=== PATIENT | female | born 1930 | race Caucasian/White ===

== ENCOUNTER 2017-11-10 14:27 | Outpatient (CLI) | payer MEDICARE ==
--- NOTE | 2017-11-11 22:01 | Mammography Report ---
DATE OF SERVICE: 11/10/2017 DIGITAL SCREENING MAMMOGRAM: 11/10/2017 CLINICAL INDICATION: An 86-year-old with a family history of breast cancer for screening. COMPARISON: 10/2016, , 10/2014, 10/2011. TECHNIQUE: Routine CC and MLO projections were obtained of the breasts. The breasts demonstrate scattered fibroglandular densities bilaterally. intramammary lymph nodes are stable. Coarse and punctate, typically benign calcifications are present. No suspicious masses, clustered microcalcifications, or regions of architectural distortion are identified. IMPRESSION: Benign findings. RECOMMENDATIONS: Routine annual screening unless otherwise clinically indicated. BIRADS category 2 benign findings. STANDARD QUALIFYING STATEMENTS 1. This examination was reviewed with the aid of Computed-Aided Detection (CAD). 2. A negative or benign imaging report should not delay biopsy if clinically suspicious findings are present. Consider surgical consultation if warranted. More than 5% of cancers are not identified by imaging. 3. Dense breasts may obscure an underlying neoplasm. TD: 11/11/2017 22:58
== END 2017-11-10 14:28 | disposition home or self-care (01) ==
LOC: DI.N 14:27
PROVIDERS: ATTEND Family Medicine
DX: Z12.31 Encounter for screening mammogram for malignant neoplasm of breast (principal); Z80.3 Family history of malignant neoplasm of breast
CPT/HCPCS: 77067

== ENCOUNTER 2018-09-04 20:05 | Outpatient (CLI) | payer MEDICARE | END 2018-09-04 20:06 | disposition EMS.NT | LOC: EMS 20:05 | PROVIDERS: ATTEND Surgery | DX: R46.4 Slowness and poor responsiveness (principal); R73.09 Other abnormal glucose ==